=== PATIENT | male | born 1940 | race Hispanic/Latino ===

== ENCOUNTER → 2020-03-27 | Outpatient (CLI) | payer OTHER ==
[~2020-03-27] MED LIST: ALBUTEROL SULFATE 0.083% 2.5 MG/3 ML INH IH ONE
== END | disposition home or self-care (01) ==
LOC: RESP 18:36
PROVIDERS: ATTEND Orthopaedic Surgery
DX: J98.9 Respiratory disorder, unspecified (principal)
CPT/HCPCS: 71046; 94060